=== PATIENT | female | born 1955 | race Caucasian/White ===

== ENCOUNTER 2018-12-18 06:30 | Inpatient (IN) | payer OTHER ==
[2018-12-18] MEDS: HYDROmorphONE 1 MG/ML SYG IV (07:01)
[2018-12-18] MEDS: ONDANSETRON 4 MG INJ IV ×2 (07:01→13:34)
[2018-12-18] MEDS: SOD CHLORIDE 0.9% 1,000 ML IV (07:01)
[2018-12-18 07:09] LABS: ADD MAN DIFF? NO
[2018-12-18 07:17] LABS: BASOPHIL # 0.1 10^3/ul (0.0-0.1); BASOPHILS % 0.7 % (0.0-2.0); EOSINOPHILS # 0.1 10^3/ul (0.0-0.5); EOSINOPHILS % 0.8 % (0.0-7.0); HEMATOCRIT 45.5 % (37.0-47.0); HEMOGLOBIN 14.7 g/dl (12.0-16.0); LYMPHOCYTES # 2.3 10^3/ul (0.8-2.9); LYMPHOCYTES % 22.4 % (15.0-51.0); MEAN CORPUSCULAR HEMOGLOBIN 27.8 pg (29.0-33.0); MEAN CORPUSCULAR HGB CONC 32.3 g/dl (32.0-37.0); MEAN PLATELET VOLUME 9.7 fl (7.4-10.4); MONOCYTE # 0.8 10^3/ul (0.3-0.9); MONOCYTES % 7.9 % (0.0-11.0); NEUTROPHIL # 7.1 10^3/ul (1.6-7.5); NEUTROPHILS % 67.7 % (39.0-77.0); PLATELET COUNT 332 10^3/UL (140-415); RED BLOOD COUNT 5.29 10^6/ul (4.20-5.40); RED CELL DISTRIBUTION WIDTH 15.2 % (11.5-14.5)
[2018-12-18 07:17] LABS: WHITE BLOOD COUNT 10.4 10^3/ul (4.8-10.8)
[2018-12-18 07:40] LABS: INR 0.95; PROTIME 12.8 Sec (11.9-14.9)
[2018-12-18 07:41] LABS: PARTIAL THROMBOPLASTIN TIME 31.8 Sec (23.0-35.0)
[2018-12-18 07:43] LABS: ANION GAP 12 (5-13); BLOOD UREA NITROGEN 15 mg/dl (7-20); CALCIUM 9.9 mg/dl (8.4-10.2); CARBON DIOXIDE 24 mmol/L (21-31); CHLORIDE 107 mmol/L (97-110); Estimated GFR > 60 mL/min (>60); GLUCOSE 131 mg/dl (70-220); POTASSIUM 4.2 mmol/L (3.5-5.1); SODIUM 143 mmol/L (135-144)
[2018-12-18 07:55] LABS: TROPONIN-I < 0.012 ng/ml (0.000-0.120)
[2018-12-18] MEDS: SOD CHLORIDE 0.9% 100 ML (08:12)
[2018-12-18] MEDS: IOHEXOL 100 ML (08:13)
[2018-12-18] MEDS: APIXABAN 5 MG TABLET PO (09:24)
[2018-12-18] MEDS ORDERED: ACETAMINOPHEN 325 MG TAB PO (09:30)
[2018-12-18 09:54] LABS: B-TYPE NATRIURETIC PEPTIDE 148 PG/ML (0-125)
[2018-12-18] MEDS ORDERED: NACL 0.9% 3 ML SYG IV (11:00)
[2018-12-18] MEDS: HYDROmorphONE 0.5 MG/0.5 ML SYG IV ×2 (13:34→18:23)
[2018-12-18] MEDS: FLUOXETINE 10 MG CAP PO (13:40)
[2018-12-18 16:36] LABS: CREATINE KINASE 26 IU/L (23-200)
[2018-12-18 16:48] LABS: CK INDEX 1.3; CK-MB 0.33 ng/ml (0.0-2.4); TROPONIN-I < 0.012 ng/ml (0.000-0.120)
[2018-12-18] MEDS: ENOXAPARIN 80 MG/0.8 ML SYG SC (20:23)
[2018-12-18] MEDS ORDERED: APIXABAN 5 MG TABLET PO (21:00)
[2018-12-18 22:26] LABS: CREATINE KINASE 24 IU/L (23-200)
[2018-12-18 22:38] LABS: CK INDEX 1.3; CK-MB 0.32 ng/ml (0.0-2.4); TROPONIN-I < 0.012 ng/ml (0.000-0.120)
[2018-12-18] MEDS: ZOLPIDEM 5 MG TAB PO (22:55)
[2018-12-19] MEDS: HYDROmorphONE 0.5 MG/0.5 ML SYG IV (05:36)
[2018-12-19 05:53] LABS: ADD MAN DIFF? NO
[2018-12-19] MEDS: PANTOPRAZOLE (EC) 40 MG TAB PO (05:53)
[2018-12-19 06:03] LABS: BASOPHIL # 0.1 10^3/ul (0.0-0.1); BASOPHILS % 0.7 % (0.0-2.0); EOSINOPHILS # 0.1 10^3/ul (0.0-0.5); EOSINOPHILS % 1.2 % (0.0-7.0); HEMATOCRIT 40.5 % (37.0-47.0); HEMOGLOBIN 12.9 g/dl (12.0-16.0); LYMPHOCYTES # 1.6 10^3/ul (0.8-2.9); LYMPHOCYTES % 23.6 % (15.0-51.0); MEAN CORPUSCULAR HEMOGLOBIN 27.7 pg (29.0-33.0); MEAN CORPUSCULAR HGB CONC 31.9 g/dl (32.0-37.0); MEAN CORPUSCULAR VOLUME 87.1 fl (82.0-101.0); MEAN PLATELET VOLUME 9.6 fl (7.4-10.4); MONOCYTE # 0.6 10^3/ul (0.3-0.9); MONOCYTES % 8.6 % (0.0-11.0); NEUTROPHIL # 4.4 10^3/ul (1.6-7.5); NEUTROPHILS % 65.5 % (39.0-77.0); PLATELET COUNT 234 10^3/UL (140-415); RED BLOOD COUNT 4.65 10^6/ul (4.20-5.40)
[2018-12-19 06:03] LABS: WHITE BLOOD COUNT 6.7 10^3/ul (4.8-10.8)
[2018-12-19 06:31] LABS: ALANINE AMINOTRANSFERASE 23 IU/L (13-69); ALBUMIN 3.7 g/dl (3.3-4.9); ALBUMIN/GLOBULIN RATIO 1.27; ALKALINE PHOSPHATASE 60 IU/L (42-121); ANION GAP 6 (5-13); ASPARTATE AMINO TRANSFERASE 33 IU/L (15-46); BILIRUBIN,INDIRECT 0.5 mg/dl (0-1.1); BILIRUBIN,TOTAL 0.5 mg/dl (0.2-1.3); BLOOD UREA NITROGEN 14 mg/dl (7-20); CALCIUM 9.1 mg/dl (8.4-10.2); CARBON DIOXIDE 27 mmol/L (21-31); CHLORIDE 108 mmol/L (97-110); CHOL/HDL RATIO 3.8 RATIO; CHOLESTEROL 204 mg/dl (100-200); CREATININE 0.58 mg/dl (0.44-1.00); Estimated GFR > 60 mL/min (>60); GLUCOSE 105 mg/dl (70-220); HDL CHOLESTEROL 53 mg/dl (35-98); LDL CHOLESTEROL,CALCULATED 131 mg/dl; MAGNESIUM 2.1 mg/dl (1.7-2.5); PHOSPHORUS 3.8 mg/dl (2.5-4.9); POTASSIUM 4.6 mmol/L (3.5-5.1); SODIUM 141 mmol/L (135-144); TOTAL PROTEIN 6.6 g/dl (6.1-8.1); TRIGLYCERIDES 102 mg/dl (0-149)
[2018-12-19 07:04] LABS: HEMOGLOBIN A1C 5.2 % (0-5.9)
[2018-12-19] MEDS ORDERED: CHOLECALCIFEROL 1,000 UNIT TAB PO (09:00)
[2018-12-19] MEDS ORDERED: KETOROLAC 15 MG INJ IV (09:02)
[2018-12-19] MEDS ORDERED: HYDROmorphONE 2 MG/ML SYG (09:12)
[2018-12-19] MEDS: FLUOXETINE 10 MG CAP PO (09:19)
[2018-12-19] MEDS: HYDROmorphONE 2 MG/ML SYG IV ×2 (09:19→12:59)
[2018-12-19] MEDS: ENOXAPARIN 80 MG/0.8 ML SYG SC ×2 (09:28→20:39)
[2018-12-19] MEDS: ERGOCALCIFEROL 50,000 UNIT CAP PO (10:47)
[2018-12-19] MEDS: ONDANSETRON 4 MG INJ IV ×2 (10:47→14:32)
[2018-12-19] MEDS: OXYCODONE/ACETAMINOPHEN (5/325) TAB PO (10:47)
[2018-12-19] MEDS: DOCUSATE SODIUM 100 MG CAP PO ×2 (11:30→20:18)
[2018-12-19] MEDS: PSYLLIUM 28% PACKET PO ×2 (12:03→20:39)
[2018-12-19] MEDS: ALBUTEROL/IPRATROPIUM (NEB) 3 ML AMP HHN (12:40)
[2018-12-19] MEDS: METOCLOPRAMIDE 10 MG INJ IV ×3 (14:30→23:17)
[2018-12-19] MEDS: SOD CHLORIDE 0.9% 1,000 ML IV (14:32)
[2018-12-19] MEDS: ACETAMINOPHEN 325 MG TAB PO (17:37)
[2018-12-19] MEDS: ZOLPIDEM 5 MG TAB PO (23:17)
[2018-12-20] MEDS: SOD CHLORIDE 0.9% 1,000 ML IV ×2 (03:00→05:29)
[2018-12-20] MEDS: METOCLOPRAMIDE 10 MG INJ IV (05:28)
[2018-12-20] MEDS: PANTOPRAZOLE (EC) 40 MG TAB PO (05:33)
[2018-12-20] MEDS: HYDROmorphONE 2 MG/ML SYG IV (08:07)
[2018-12-20] MEDS: ONDANSETRON 4 MG INJ IV (08:14)
[2018-12-20] MEDS: ENOXAPARIN 80 MG/0.8 ML SYG SC ×2 (08:27→21:10)
[2018-12-20] MEDS: DOCUSATE SODIUM 100 MG CAP PO ×2 (09:16→21:03)
[2018-12-20] MEDS: FLUOXETINE 10 MG CAP PO (09:16)
[2018-12-20] MEDS ORDERED: HYDROmorphONE 2 MG/ML SYG IV (15:00)
[2018-12-20] MEDS: OXYCODONE/ACETAMINOPHEN (5/325) TAB PO (16:11)
[2018-12-20] MEDS ORDERED: hydrALAzine 20 MG INJ IV (16:30)
[2018-12-20] MEDS: ZOLPIDEM 5 MG TAB PO (21:03)
[2018-12-20] MEDS: ACETAMINOPHEN 325 MG TAB PO (21:12)
[2018-12-21] MEDS: ACETAMINOPHEN 325 MG TAB PO (02:49)
[2018-12-21] MEDS: PANTOPRAZOLE (EC) 40 MG TAB PO (05:16)
[2018-12-21] MEDS: FLUOXETINE 10 MG CAP PO (09:21)
[2018-12-21] MEDS: DOCUSATE SODIUM 100 MG CAP PO (09:21)
[2018-12-21] MEDS: OXYCODONE/ACETAMINOPHEN (5/325) TAB PO (09:23)
[2018-12-21] MEDS: ENOXAPARIN 80 MG/0.8 ML SYG SC (09:32)
[2018-12-26] MEDS ORDERED: APIXABAN 5 MG TABLET PO (09:00)
== END 2018-12-21 12:00 | disposition home or self-care (01) | DRG 176 ==
LOC: E/R 06:30 → 6WM 09:30
DX: I26.99 Other pulmonary embolism without acute cor pulmonale (principal); E78.5 Hyperlipidemia, unspecified; K21.9 Gastro-esophageal reflux disease without esophagitis; F41.9 Anxiety disorder, unspecified; F32.9 Major depressive disorder, single episode, unspecified; J45.909 Unspecified asthma, uncomplicated; R73.03 Prediabetes; R07.81 Pleurodynia; Z79.02 Long term (current) use of antithrombotics/antiplatelets; Z90.710 Acquired absence of both cervix and uterus
CPT/HCPCS: 36415; 71045; 71275; 80048; 80053; 80061; 82550; 82553; 82652; 83036; 83735; 83880; 84100; 84484; 85025; 85610; 85730; 93005; 93306; 93970; 94664; 96374; 96375; 99285-25